=== PATIENT | male | born 1980 | race Caucasian/White ===

== ENCOUNTER 2024-07-11 08:53 | Outpatient (CLI) | payer OTHER, SELFPAY ==
--- NOTE | 2024-07-18 13:02 | WPDHOMESLEEP ---
Sleep Study - Home Unattended Date of Study: 07/11/24 Ordering Provider: Eric Hale MD Interpreting Provider: Katiuska Kwon MD Home Sleep Study Type: Watch PAT Height: 1.7 m Weight: 122.47 kg Body Mass Index: 42.3 Neck Circumference (inches): 19 Yantic: 0 Reason for Sleep Study Loud snoring, witnessed apneas Sleep History Bhavesh Yu is a 44-year-old man who has a history of loud snoring and witnessed apneas. He has choking and gasping at night. He has morning headaches, a dry mouth and a sore throat on waking and nocturnal heartburn. He does not wake at night to go urinate. He does not have difficulty falling asleep,nor does he awaken during the night. He does not wake up earlier than anticipated. He does not use any sedatives to get to sleep. He does not feel anxious about his sleep. During this home sleep test, he indicated that it took him an hour to fall asleep and that he woke up more than 3 times during the night. He is indicated that he hardly slept at all. He was up once to go to the bathroom. His normal bedtime is 12 30 midnight, falling asleep within 15 minutes. He spent 7 hours in bed, 6 hours 45 minutes of sleep. On days off bedtime is 1:00 a.m.. He falls asleep within 15 minutes, spends 8 hours in bed, all of it asleep. He feels a little restored on his days off. He does not take planned naps. Habits: Tobacco : Never smoker Alcohol : 1-2 drinks per month Recreational substances : occasional marijuana PMFSH Past Medical History Medical History (Updated 07/18/24 @ 13:27 by Katiuska Kwon MD) Essential hypertension Obstructive sleep apnea (adult) (pediatric) Morbid obesity due to excess calories Family History Family History Father Heart disease Malignant neoplasm of prostate Hypertension Mother Cancer Sibling No problems noted. Social History Social History Smoking status: Never smoker Alcohol intake: current Alcohol use details: 1 or 2 drinks per month Substance use: current Substance use type: marijuana Last use: Been a while since he has had any. 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 Prior to using the device, the patient received verbal and written instructions for its application and was provided with the help desk phone number for additional telephonic instruction with 24-hour availability of qualified personnel to answer questions. Sleep Architecture The total recording time is 5 hrs, 49 min. The total sleep time is 4 hrs, 49 min. Sleep latency is 19 minutes. REM latency is 97 minutes. The patient had 8 episodes of waking. Sleep architecture shows 1.0% deep sleep, 84.3% light sleep, and 14.7% stage REM. The patient spent 16.2% of total sleep time in the supine position. Sleep efficiency was 83%. Respiratory Analysis The overall AHI (pAHI 3%:) is 84.2. The central AHI is 4.2. The AHI was 86.4 in NREM and 72.1 in REM sleep. The AHI was 109.2 in Supine and 79.5 in Non-supine sleep. Percent of Will Alfaro respirations is 14.0%. Oximetry Data The oxygen desaturation index (TYRA 4%:) is 68.9. The mean saturation is 92%, and the lowest saturation is 63%. Time spent with saturation < 88% is 37.8 minutes. Snoring Profile Snoring average intensity is 58 dB. The patient snored above 45 decibels for 236.6 minutes, 81.7% of sleep time. Cardiac Profile The average pulse rate is 74 beats per minutes. The lowest pulse rate is 43 bpm. The highest pulse rate reported is 131 bpm.Cardiac rhythm analysis in sleep did not detect atrial fibrillation. Assessment and Plan Assessment and Plan (1) Obstructive sleep apnea (adult) (pediatric): Code(s): G47.33 - Obstructive sleep apnea (adult) (pediatric) Status: Acute Assessment and Plan: This home sleep test on 07/11/2024 shows extremely severe obstructive sleep apnea, the apnea-hypopnea index is 84.2 using a 3% criteria and 14% of the sleep time was spent with Will-Alfaro respiration. This is abnormal. His central apnea-hypopnea index is 4.2, normal is fewer than 5 events per hour, however he has Will Alfaro breathing out of proportion to the amount of central apneas. He desaturated to 63%, spent 37.8 minutes below 88% and had loud sustained snoring for more than 80% of the night. With his degree of apnea including 14% Will-Alfaro respiration and desaturation to 63%, the patient needs to have a full night CPAP titration in the sleep lab so that he can be properly treated. Auto-PAP is contraindicated as this can worsen Will-Alfaro breathing. The patient should not nap on the day of the study. He should have a sleep aid available to use, if needed, to get to sleep and stay asleep. Consider Lunesta 2 mg or 3 mg. His Yantic score is 0, however in his office note, he told his primary care that he could fall asleep anywhere, anytime. His Yantic, a self reported score of sleepiness, is not accurate. 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 This pattern involves a fast, shallow breathing followed by slow, heavier breathing and moments of no breathing at all. The cessation of breathing is called apnea. Shallow breathing is called hypopnea. After an apnea or a hypopnea, the pattern begins again in a cycle that typically lasts 45-90 seconds. Will-Alfaro respirations can be associated with central sleep apnea. Central sleep apnea and Will-Alfaro respirations impact respiratory effort and different ways. The most common causes for Will-Alfaro respirations include heart failure, strokes, opioids and alcohol. He does not have any of these conditions listed in his history. For this reason, it is recommended that he has an echocardiogram to assess his left ventricular function. Data The data obtained during this sleep study is adequate for interpretation. Certification This sleep study has been reviewed by a board certified sleep medicine physician.
[2024-07-18 13:40] VITALS: BMI 42.3
== END 2024-07-12 11:19 | disposition home or self-care (01) ==
PROVIDERS: PCP Family Medicine; Visit Provider Family Medicine
DX: G47.33 Obstructive sleep apnea (adult) (pediatric) (principal)
CPT/HCPCS: 95800